=== PATIENT | male | born 1955 | race Caucasian/White ===

== ENCOUNTER 2017-02-07 06:38 | Day surgery (SDC) | payer BC ==
[~2017-02-07] VITALS: Ht 185.4 cm; Wt 105.0 kg
--- NOTE | 2017-02-08 08:36 | OR ---
ADMIT: 02/07/2017 RM/LOC: [facility] [place] MR#: [id number] [id number] [place], [place] [address] KANDICE MASTERSON [address] [place] [address] Operative/Delivery Room Report SEX: M AGE: 61 : 1955 SURGERY DATE: 02/07/2017 SURGEON: Alfredo Marx MD PROCEDURE: Total colonoscopy with hot-biopsy polypectomy and endoscopic submucosal resection. PREOPERATIVE DIAGNOSIS: Colon polyps. POSTOPERATIVE DIAGNOSES: Ascending adenomatous polyp, left-sided diverticulosis. DESCRIPTION OF PROCEDURE: The patient was brought to the procedure room, placed in the left lateral decubitus position. Informed consent had been obtained preoperatively. The risks and benefits including, but not limited to, perforation, sedation, bleeding were discussed with the patient and agreed upon. All questions were answered, alternatives discussed and the patient agreed. TIVA was provided by Dr. Beckwith with propofol. Anal inspection; digital examination revealed no abnormalities or obstructing masses. Prostate was normal in size, texture, and contour without nodularity. Olympus videoendoscope, model CF-H180AL was inserted into the rectum and advanced to the cecum without difficulty. Appendiceal orifice and ileocecal valve were identified. Valve could not be cannulated due to position. The scope was withdrawn through a normal cecum into the mid-ascending colon where there was an adenomatous-appearing flat polyp that was biopsied using a hot biopsy forceps. This area was then injected with 1:30223 epinephrine and saline. The area was snared and piecemeal resection with a hot biopsy forceps obliterated this area. The remainder of the ascending, and transverse colon were normal. Descending and sigmoid, there were scattered diverticula without mucosal abnormalities. Rectum was normal. Scope was retroflexed. The anal verge appeared normal. The patient tolerated the procedure well. No complications were expected. Blood loss was less than 1 mL. He will call me in 1 week for his biopsy report, sooner if he should have any postoperative problems. If this area is indeed adenomatous, would recommend that he have repeat colonoscopy with re-evaluation of the ascending colon in 1 year unless signs or symptoms develop in the interval. Alfredo Marx MD/ marie JOB #: [id number] CC: Alfredo Marx, Attending Physician Martínez Barber, Family Physician Scottie Roberson MD
== END 2017-02-07 10:15 | disposition home or self-care (01) ==
LOC: SSS 06:38
PROC: 0DBE8ZX Excision of Large Intestine, Via Natural or Artificial Opening Endoscopic, Diagnostic (ICD-10-PCS; principal; 2017-02-07)
PROC: 0DBK8ZX Excision of Ascending Colon, Via Natural or Artificial Opening Endoscopic, Diagnostic (ICD-10-PCS; principal; 2017-02-07)
DX: D12.2 Benign neoplasm of ascending colon (principal); K57.30 Diverticulosis of large intestine without perforation or abscess without bleeding; Z87.891 Personal history of nicotine dependence; Z96.652 Presence of left artificial knee joint; Z98.890 Other specified postprocedural states; Z87.442 Personal history of urinary calculi

== ENCOUNTER 2017-02-20 06:37 | Emergency (ER) | payer BC ==
--- NOTE | 2017-02-23 13:18 | ER ---
ADMIT: 02/20/2017 RM/LOC: ER [facility] MR#: [id number] [place], [place] [address] KANDICE MASTERSON [address] [place] [address] Emergency Room Report SEX: M AGE: 62 : 1955 DATE: 02/20/2017 ADDENDUM: TIME: 0637 hours. Please refer to [address] Lopez's T-sheet for complete H and P. HISTORY OF PRESENT ILLNESS: Briefly, the patient is a 62-year-old, comes in with rectal bleeding. It has been there for a couple days. He states that he had a polypectomy with a colonoscopy done about 13 days ago, started bleeding on Tuesday. He has kind of had blood with each bowel movement, not a large amount, does not feel lightheaded. I am following him up on his labs. CBC was normal except white count 3.6, hemoglobin 10.6, CRP was 1.23. Otherwise, chemistries are all normal. Lactate normal, coags normal, troponin normal. I talked to Dr. Allen, and they will follow him up tomorrow with repeat hemoglobin. ASSESSMENT: 1. Rectal bleeding. 2. Status post colonoscopy and polypectomy. 3. Anemia. PLAN: Stop meloxicam. Follow up with Dr. Barber tomorrow. Return if worse. Vinay Thompson MD/ hollyl JOB #: [id number] CC: Meño Lopez MD, Attending Physician Martínez Barber MD, Family Physician
== END 2017-02-20 08:10 | disposition home or self-care (01) ==
LOC: ER 06:37
DX: K62.5 Hemorrhage of anus and rectum (principal); D64.9 Anemia, unspecified; Z79.899 Other long term (current) drug therapy